=== PATIENT | male | born 1985 | race Two or more races ===

== ENCOUNTER 2021-07-06 23:47 | Emergency (ER) | payer MEDICAID, OTHER ==
[~2021-07-06] VITALS: Ht 185.4 cm; Wt 158.8 kg
[2021-07-06 23:51] VITALS: BP 172/104
[2021-07-07] MEDS ORDERED: DexAMETHasone SOD PHOS 10MG/1ML VIAL INJ IV ONE
[2021-07-07] MEDS ORDERED: FAMOTIDINE 20 MG TAB PO ONE
[2021-07-07] MEDS ORDERED: EPINEPHrine HCL 1 MG/1 ML AMP SC ONE
== END 2021-07-07 02:06 | disposition left against medical advice (07) ==
LOC: EDBD 23:47 → ER 23:47
DX: R22.0 Localized swelling, mass and lump, head (principal); Z53.21 Procedure and treatment not carried out due to patient leaving prior to being seen by health care provider
CPT/HCPCS: J0171; J1100

== ENCOUNTER 2023-05-25 14:06 | Emergency (ER) | payer OTHER ==
[~2023-05-25] VITALS: Ht 185.4 cm; Wt 154.6 kg
[2023-05-25 14:20] VITALS: TEMP 98.9
[2023-05-25 14:30] VITALS: PULSE 72; RESP 18; O2SAT 96
[2023-05-25 20:00] VITALS: PULSE 80; RESP 16; O2SAT 97
[2023-05-25 21:00] VITALS: BP 145/96; PULSE 80; RESP 20; O2SAT 96
[2023-05-25] MEDS ORDERED: KETOROLAC TROMETH 60MG/2ML VIAL IM ONE (21:00)
== END 2023-05-25 21:59 | disposition home or self-care (01) ==
LOC: ER 14:06
DX: S09.8XXA Other specified injuries of head, initial encounter (principal); S70.02XA Contusion of left hip, initial encounter; M54.2 Cervicalgia; I10 Essential (primary) hypertension; W18.09XA Striking against other object with subsequent fall, initial encounter; Y93.89 Activity, other specified; Y92.89 Other specified places as the place of occurrence of the external cause; Y99.8 Other external cause status
CPT/HCPCS: 70450; 71045; 72125; 72128; 72131; 72141; 72170; 73030; 96372; 99285; J1885

== ENCOUNTER 2025-04-20 15:24 | Emergency (ER) | payer OTHER ==
[~2025-04-20] VITALS: Ht 193 cm; Wt 153.5 kg
[2025-04-20 15:25] VITALS: BP 154/91; PULSE 65; RESP 18; TEMP 98.2; O2SAT 95
== END 2025-04-20 18:00 | disposition left against medical advice (07) ==
LOC: ER 15:24
DX: S61.211A Laceration without foreign body of left index finger without damage to nail, initial encounter (principal); Z53.21 Procedure and treatment not carried out due to patient leaving prior to being seen by health care provider; W26.8XXA Contact with other sharp object(s), not elsewhere classified, initial encounter; Y93.89 Activity, other specified; Y92.89 Other specified places as the place of occurrence of the external cause; Y99.8 Other external cause status